=== PATIENT | male | born 1985 | race Caucasian/White ===

== ENCOUNTER 2018-08-30 10:27 | Emergency (ER) | payer SELFPAY ==
[~2018-08-30] VITALS: Ht 167.6 cm; Wt 79.8 kg
[2018-08-30 10:32] VITALS: Ht 167.6 cm; Wt 79.8 kg
[2018-08-30 13:55] VITALS: BP 127/61
== END 2018-08-30 13:55 | disposition home or self-care (01) ==
LOC: ED 10:27
DX: F41.9 Anxiety disorder, unspecified (principal); E66.9 Obesity, unspecified; F17.298 Nicotine dependence, other tobacco product, with other nicotine-induced disorders
CPT/HCPCS: 99406